=== PATIENT | male | born 1995 | race Caucasian/White ===

== ENCOUNTER 2017-07-13 15:50 | Emergency (ER) | payer SELFPAY | END 2017-07-13 17:54 | disposition home or self-care (01) | LOC: D.ER 15:50 | DX: S16.1XXA Strain of muscle, fascia and tendon at neck level, initial encounter (principal); V43.62XA Car passenger injured in collision with other type car in traffic accident, initial encounter; Y93.89 Activity, other specified; Y92.410 Unspecified street and highway as the place of occurrence of the external cause; S29.012A Strain of muscle and tendon of back wall of thorax, initial encounter; S39.012A Strain of muscle, fascia and tendon of lower back, initial encounter ==

== ENCOUNTER 2017-11-16 10:29 | Emergency (ER) | payer SELFPAY ==
[~2017-11-16] VITALS: Ht 198.1 cm; Wt 77.3 kg
[2017-11-16 10:33] VITALS: Ht 198.1 cm; Wt 77.3 kg
[2017-11-16] MEDS ORDERED: ADDERALL 15 MG15 MG PO (10:36)
[2017-11-16] MEDS ORDERED: TORADOL10 MG PO (11:21)
[2017-11-16 11:56] VITALS: BP 120/74
== END 2017-11-16 11:57 | disposition home or self-care (01) ==
LOC: D.ER 10:29
DX: S80.12XA Contusion of left lower leg, initial encounter (principal); W20.8XXA Other cause of strike by thrown, projected or falling object, initial encounter; Y93.H2 Activity, gardening and landscaping; Y92.017 Garden or yard in single-family (private) house as the place of occurrence of the external cause